=== PATIENT | female | born 1955 | race Caucasian/White ===

== ENCOUNTER 2021-04-07 13:39 | Outpatient (CLI) | payer MEDICARE, SELFPAY ==
--- NOTE | 2021-04-07 14:19 | MM_ITS ---
WS: [id number] BILATERAL SCREENING DIGITAL MAMMOGRAM WITH CAD HISTORY: HX OF BREAST CA COMPARISON: Mammograms have not been performed for 20 years. Bilateral CC and MLO views submitted. Computer aided detection analyzed. Breast composition: There are scattered areas of fibroglandular density. No suspicious masses, microc alcifications or architectural distortion. Prior RIGHT lumpectomy. Surgical suture is noted near the axilla. MM/[id number] IMPRESSION: BI-RADS: 2-Benign FOLLOW UP: 1 Year Follow-up
== END 2021-04-07 13:40 | disposition home or self-care (01) ==
LOC: RADSHAW 13:46
PROVIDERS: PCP Family Medicine; Visit Provider Family Medicine
DX: Z85.3 Personal history of malignant neoplasm of breast (principal)
CPT/HCPCS: 77066

== ENCOUNTER → 2021-06-11 13:39 | Outpatient (BNVA) | payer MEDICARE, SELFPAY | PROVIDERS: PCP Family Medicine; Visit Provider Surgery | DX: Z01.812 Encounter for preprocedural laboratory examination (principal); Z20.822 Contact with and (suspected) exposure to COVID-19 | CPT/HCPCS: 87635 ==

== ENCOUNTER 2021-06-16 06:02 | Day surgery (SDC) | payer MEDICARE, SELFPAY ==
[2021-06-14 09:37] VITALS: BMI 19.3
[2021-06-16 06:24] VITALS: BP 140/79; PULSE 59; RESP 18; TEMP 36.1; O2SAT 97
[2021-06-16] MEDS: sodium chloride 0.9% 1,000 ML 30 ML IV (06:39)
--- NOTE | 2021-06-16 06:40 | W.PM.OPSFHP ---
Same Day Surgery H&P Indication for Procedure/HPI DATE OF PROCEDURE: June 16, 2021 CHIEF COMPLAINT/INDICATIONFOR SURGICAL PROCEDURE: Screening colonoscopy PREOP DIAGNOSIS: Screening colonoscopy PLANNED PROCEDRUE: Operation Date: 06/16/21 07:00 Proposed Procedures p Colonoscopy 87894 Z12.11(Not Applicable) - Lan Fisher MD This is a pleasant 66 years old female patient referred to my practice for screening colonoscopy, patient denies any bleeding per rectum or history of colon cancer previous colonoscopy was normal per her description. ROS All systems have been reviewed negative except as per the above or per problem list Medications/Allergies* Home Medications Medication Instructions Recorded Confirmed Type C,E,zinc,copper [id number] [50 1 cap PO DAILY 06/14/21 06/14/21 History Plus Adult Eye Health] ascorbic acid (vitamin C) [Vitamin 500 mg PO DAILY 06/14/21 06/14/21 History C] calcium carbonate-vitamin D2 600 tab PO DAILY 06/14/21 06/14/21 History [Calcium + Vitamin D] cyanocobalamin-cobamamide [B-12 5,000 tab SUBLINGUAL DAILY 06/14/21 06/14/21 History Plus] multivitamin 1 tab PO DAILY 06/14/21 06/14/21 History potassium 99 mg PO DAILY 06/14/21 06/14/21 History Allergies/Adverse Reactions Allergy/AdvReac Type Severity Reaction Status Date / Time mefenamic acid [From Ponstel] Allergy ADR-Diarrhe Verified 06/16/21 06:40 a tolmetin [From Tolectin] Allergy ADR-Diarrhe Verified 06/16/21 06:40 a Current Medications: Generic Name Dose Route Start Last Admin Trade Name Freq PRN Reason Stop Dose Admin Sodium Chloride 1,000 mls @ 30 mls/hr 06/16/21 06:15 06/16/21 06:39 Sodium Chloride 0.9% IV 06/17/21 06:14 30 mls/hr .Q24H SABINO Administration Pertinent Exam Findings alert, oriented x 3, clear to auscultation bilaterally, regular rate & rhythm and procedure specific exam findings Recommendations Surgery/Procedure today (Colonoscopy with possible biopsy) Other Plans: Plan of care; After thorough history and physical examination and reviewing the chart, plan to perform screening colonoscopy. I discussed with the patient in details the risks,benefits,alternatives and indications.The risk of aspiration, bleeding, soft tissue injury, perforation of the colon and other potential concomitant complications were explained to the patient in details,also the potential need for Laproscoy/Laparotomy to repair any related complications including but not limited to colectomy and or Closotomy.The patient understood this well and did agree to proceed. Rationale was carefully and clearly discussed with the patient.Appropriate informed consent have been reviewed and signed All questions have been answered and all concerns have been addressed to patient's satisfaction. Verbal and written Instructions were given to the patient for colonoscopy prep Coding Level of Care Code Acute Social Sciences Department Chair for Anand Osborne
--- NOTE | 2021-06-16 06:53 | ANES.PREANE2 ---
Pre-Anesthetic Assessment Pre-Anesthetic Assessment: Height/Weight: Height 1.7 m Weight 55.792 kg Temp Pulse Resp BP Pulse Ox 97 F L 59 L 18 140/79 97 06/16/21 06:24 06/16/21 06:24 06/16/21 06:24 06/16/21 06:24 06/16/21 06:24 Preop Diagnosis: Screening colonoscopy Proposed Procedure: Operation Date: 06/16/21 07:00 Proposed Procedures p Colonoscopy 65994 Z12.11(Not Applicable) - Lan Fisher MD Was Beta Bailee taken within 24 hours: N/A Last intake: Intake Last Liquid Date 06/15/21 Last Liquid Time 23:00 Last Solid Date 06/14/21 Last Solid Time 19:00 Social: Social History: Alcohol and Tobacco Exam: Pre-Anes Outpt Exam: alert, oriented x 3, clear to auscultation bilaterally and regular rate & rhythm Airway: Submandibular: WNL Cervical ROM: WNL History/ROS: No significant history except as noted and No significant complaints Pulmonary: Pulmonary: Cough CV/HEM: CV/HEM: Afib : : None reported Hepatic: Hepatic: None reported GI: GI: None reported Metabolic: Metabolic: None reported Musc/skel: Musc/skel: None reported Neuropsych: Neuropsych: None reported Anesthetic Plan: ASA status: 3 Anesthesia: MAC Risk of > 500 ml blood loss (7ml/kg in children): No Meds/Allergies Current Medications: Current Medications Generic Name Dose Route Start Last Admin Trade Name Freq PRN Reason Stop Dose Admin Sodium Chloride 1,000 mls @ 30 ml s/hr 06/16/21 06:15 06/16/21 06:39 Sodium Chloride 0.9% IV 06/17/21 06:14 30 mls/hr .Q24H SABINO Administration Data Anesthesia Cardiac Studies: No Data to Display
[2021-06-16 07:37] VITALS: BP 104/62; PULSE 62; RESP 16; TEMP 36.2; O2SAT 100
[2021-06-16 07:49] VITALS: BP 120/73; PULSE 52; RESP 16; O2SAT 96
--- NOTE | 2021-06-16 14:08 | ANE.PACU2 ---
Inpatient post-anesthesia follow up: Airway intact: Yes Vital signs: Temperature 97.2 F Pulse Rate 52 Respiratory Rate 16 Blood Pressure 120/73 Pulse Oximetry 96 Oxygen Delivery Me thod Room Air Oxygen Flow Rate Fraction of Inspir ed Oxygen Hydration adequate: Yes Nausea and vomiting: No Pain level: 1 Mental status: Baseline
== END 2021-06-16 08:12 | disposition home or self-care (01) ==
PROVIDERS: PCP Family Medicine; Visit Provider Surgery
PROC: 0DJD8ZZ Inspection of Lower Intestinal Tract, Via Natural or Artificial Opening Endoscopic (ICD-10-PCS; CPT 45378; principal; 2021-06-16 07:00)
DX: Z12.11 Encounter for screening for malignant neoplasm of colon (principal); K57.30 Diverticulosis of large intestine without perforation or abscess without bleeding; I48.91 Unspecified atrial fibrillation; F17.200 Nicotine dependence, unspecified, uncomplicated
CPT/HCPCS: 96360; G0121; J2704; J7030

== ENCOUNTER → 2022-06-14 14:07 | Outpatient (BNVA) | payer MEDICARE, SELFPAY | PROVIDERS: PCP Family Medicine; Visit Provider Family Medicine | DX: Z85.3 Personal history of malignant neoplasm of breast (principal); Z00.00 Encounter for general adult medical examination without abnormal findings | CPT/HCPCS: 85025 ==